=== PATIENT | male | born 1935 | race Caucasian/White ===

== ENCOUNTER → 2016-10-02 | Outpatient (CLI) | payer MEDICARE, BC | END | disposition short-term general hospital (02) | LOC: CLCARD 09:10 | DX: I48.91 Unspecified atrial fibrillation (principal); E78.5 Hyperlipidemia, unspecified; Z79.01 Long term (current) use of anticoagulants ==

== ENCOUNTER → 2016-10-16 | Outpatient (CLI) | payer MEDICARE, BC | END | disposition short-term general hospital (02) | LOC: CLCARD 09:50 | DX: I48.1 Persistent atrial fibrillation (principal); R06.02 Shortness of breath; E78.5 Hyperlipidemia, unspecified ==

== ENCOUNTER → 2016-11-06 | Outpatient (CLI) | payer MEDICARE, BC | END | disposition short-term general hospital (02) | LOC: CLCARD 10:07 | DX: I48.1 Persistent atrial fibrillation (principal); R06.00 Dyspnea, unspecified; E78.5 Hyperlipidemia, unspecified ==

== ENCOUNTER → 2016-12-11 | Outpatient (CLI) | payer MEDICARE, BC | END | disposition short-term general hospital (02) | LOC: CLCARD 09:05 | DX: I48.0 Paroxysmal atrial fibrillation (principal); R06.09 Other forms of dyspnea; R94.31 Abnormal electrocardiogram [ECG] [EKG]; R00.1 Bradycardia, unspecified; R94.39 Abnormal result of other cardiovascular function study; E78.5 Hyperlipidemia, unspecified; Z79.01 Long term (current) use of anticoagulants; Z79.899 Other long term (current) drug therapy ==